=== PATIENT | female | born 1990 | race Caucasian/White ===

== ENCOUNTER 2017-05-30 10:49 | Inpatient (IN) | payer OTHER ==
[~2017-05-30] VITALS: Ht 172.7 cm; Wt 109.1 kg
[2017-05-30] MEDS ORDERED: LACTATED RINGER'S 1,000 ML IV SCH (11:13)
[2017-05-30] MEDS ORDERED: LACTATED RINGER'S 1,000 ML IV PRN (11:15)
[2017-05-30] MEDS ORDERED: BUTORPHANOL 2 MG INJ IV PRN (11:30)
[2017-05-30] MEDS ORDERED: OXYTOCIN 30 UNITS/LR 500 ML IV PRN ×2 (11:30→12:30)
[2017-05-30] MEDS ORDERED: OXYTOCIN 30 UNITS/LR 500 ML IV SCH ×3 (11:30)
[2017-05-30] MEDS ORDERED: METHYLERGONOVINE 0.2 MG INJ IM PRN ×2 (11:30→12:30)
[2017-05-30] MEDS ORDERED: LIDOCAINE 1% (MPF) 30 ML INJ INJ PRN (11:30)
[2017-05-30] MEDS ORDERED: MISOPROSTOL 200 MCG TAB PR PRN ×2 (11:30→12:30)
[2017-05-30] MEDS ORDERED: CEFAZOLIN 2 GM/50 ML (PMX) 50 ML IV SCH (11:30)
[2017-05-30] MEDS ORDERED: CARBOPROST 250 MCG INJ IM PRN ×2 (11:30→12:30)
[2017-05-30] MEDS ORDERED: IBUPROFEN 600 MG TAB PO PRN (11:30)
[2017-05-30] MEDS ORDERED: MINERAL OIL LIGHT 10 ML VIAL ONE (11:49)
--- NOTE | 2017-05-30 11:50 | HP ---
Date/Time of Note Date/Time of Note DATE: 05/30/17 TIME: 11:46 OB - History Hx of Present Free Text/Dictation 26 y old G5, P2, one comes in active labor. 8 cms dilated. Chief Complaint: contractions Estimated Due Date: Jun 08, 2017 : 5 Para: 2 Care: Good Care Ultrasounds: Normal mid trimester US Obstetrical Complications: None Medical Complications: None Past Family/Social History * Past Medical, Surgical, Family and Obstetric Histories reviewed from chart. Rubella: immune RPR/VDRL: Negative GBS Status: Negative HBsAG: Negative NEHA CANDELARIO MD May 30, 2017 11:50
[2017-05-30 11:55] LABS: BASOPHILS % 0.2 % (0.0-2.0); EOSINOPHILS # 0.1 10^3/ul (0.0-0.5); EOSINOPHILS % 0.8 % (0.0-7.0); HEMATOCRIT 36.2 % (37.0-47.0); HEMOGLOBIN 11.7 g/dl (12.0-16.0); LYMPHOCYTES % 12.8 % (15.0-51.0); MEAN CORPUSCULAR HEMOGLOBIN 30.2 pg (29.0-33.0); MEAN CORPUSCULAR HGB CONC 32.3 g/dl (32.0-37.0); MEAN CORPUSCULAR VOLUME 93.5 fl (82.0-101.0); MEAN PLATELET VOLUME 12.7 fl (7.4-10.4); MONOCYTE # 1.4 10^3/ul (0.3-0.9); MONOCYTES % 8.9 % (0.0-11.0); NEUTROPHIL # 11.8 10^3/ul (1.6-7.5); NEUTROPHILS % 76.8 % (39.0-77.0); PLATELET COUNT 295 10^3/UL (140-415); RED BLOOD COUNT 3.87 10^6/ul (4.20-5.40); RED CELL DISTRIBUTION WIDTH 14.5 % (11.5-14.5); WHITE BLOOD COUNT 15.3 10^3/ul (4.8-10.8)
[2017-05-30] MEDS ORDERED: FENTAnyl 2MCG/ML-ROPIV 0.2% 100 ML ONE (11:55)
[2017-05-30 12:12] LABS: INR 1.01; PROTIME 13.3 Sec (12.2-14.2)
[2017-05-30 12:13] LABS: PARTIAL THROMBOPLASTIN TIME 26.4 Sec (25.0-35.0)
--- NOTE | 2017-05-30 12:28 | LDN ---
Date/Time of Note Date/Time of Note DATE: 05/30/17 TIME: 12:27 Delivery Summary Normal vaginal delivery,baby girl Weeks of Gestation 38 weeks Placenta Delivered: Spontaneously Meconium: none Episiotomy: No Anesthesia type: Epidural Estimated blood loss: 300 Sponge & Needle done & correct: Yes All needle counts correct: Yes Any foreign bodies felt in the: No Problems: NEHA CANDELARIO MD May 30, 2017 12:28
[2017-05-30] MEDS ORDERED: KETOROLAC 30 MG INJ IV PRN (12:30)
[2017-05-30] MEDS ORDERED: ACETAMINOPHEN 325 MG TAB PO PRN ×2 (12:30)
[2017-05-30] MEDS ORDERED: ONDANSETRON 4 MG TAB PO PRN (12:30)
[2017-05-30] MEDS ORDERED: DIPHENHYDRAMINE 50 MG INJ IV PRN (12:30)
[2017-05-30] MEDS ORDERED: FENTAnyl 2MCG/ML-ROPIV 0.2% 100 ML BAG EPI SCH (12:30)
[2017-05-30] MEDS ORDERED: NALOXONE (0.4 MG/ML) INJ IV PRN (12:30)
[2017-05-30] MEDS ORDERED: DIBUCAINE 1% 30 GM OINT PR PRN (12:30)
[2017-05-30] MEDS ORDERED: DIPHENHYDRAMINE 25 MG CAP PO PRN (12:30)
[2017-05-30] MEDS ORDERED: NA PHOSPHATE/BIPHOS 133 ML ENEMA PR PRN (12:30)
[2017-05-30] MEDS ORDERED: ZOLPIDEM 5 MG TAB PO PRN (12:30)
[2017-05-30] MEDS ORDERED: HYDROmorphONE 1 MG/ML SYG IV PRN ×2 (12:30)
[2017-05-30] MEDS ORDERED: BENZOCAINE 20% 56 ML SPRAY TOP PRN (12:30)
[2017-05-30] MEDS ORDERED: ONDANSETRON 4 MG INJ IV PRN ×2 (12:30)
[2017-05-30] MEDS ORDERED: WITCH HAZEL/GLYCERIN PAD PR PRN (12:30)
[2017-05-30] MEDS ORDERED: HYDROCODONE/APAP (5/325) TAB PO PRN (12:30)
[2017-05-30 12:36] LABS: ADD UMIC NO; UR ASCORBIC ACID 20 mg/dL (NEGATIVE); UR BILIRUBIN (Dip) NEGATIVE (NEGATIVE); UR BLOOD (Dip) NEGATIVE (NEGATIVE); UR CLARITY CLEAR (CLEAR); UR COLOR YELLOW (YELLOW); UR GLUCOSE (Dip) NEGATIVE (NEGATIVE); UR KETONES (Dip) TRACE mg/dL (NEGATIVE); UR LEUKOCYTE ESTERASE (Dip) NEGATIVE Leu/ul (NEGATIVE); UR NITRITE (Dip) NEGATIVE (NEGATIVE); UR SPECIFIC GRAVITY (Dip) 1.015 (1.003-1.030); UR TOTAL PROTEIN (Dip) NEGATIVE (NEGATIVE); UR UROBILINOGEN (Dip) NEGATIVE (NEGATIVE)
[2017-05-30 12:48] LABS: ALBUMIN 3.7 g/dl (3.3-4.9); ALBUMIN/GLOBULIN RATIO 0.97; BILIRUBIN,INDIRECT 0.3 mg/dl (0-1.1); BILIRUBIN,TOTAL 0.3 mg/dl (0.2-1.3); CALCIUM 9.3 mg/dl (8.4-10.2); CREATININE 0.58 mg/dl (0.44-1.00); POTASSIUM 4.2 mmol/L (3.5-5.1); TOTAL PROTEIN 7.5 g/dl (6.1-8.1); URIC ACID 4.3 mg/dl (3.1-7.9)
[2017-05-30 12:50] LABS: BARBITURATES Negative (NEGATIVE); BENZODIAZEPINES Negative (NEGATIVE); CANNABINOIDS Negative (NEGATIVE); COCAINE Negative (NEGATIVE); OPIATES Negative (NEGATIVE)
[2017-05-30] MEDS: OXYTOCIN 30 UNITS/LR 500 ML IV SCH ×2 (13:24→16:59)
[2017-05-30 13:37] VITALS: BP 170/90; PULSE 94; RESP 22
[2017-05-30 13:39] VITALS: Ht 172.7 cm; Wt 109.1 kg
[2017-05-30] MEDS ORDERED: PREN-17 PO (13:41)
[2017-05-30 14:15] VITALS: BP 140/62; PULSE 79; RESP 18
[2017-05-30 14:30] VITALS: BP 138/64; PULSE 74; RESP 20
[2017-05-30 16:10] VITALS: BP 136/76; PULSE 67; RESP 18
[2017-05-30] MEDS: IBUPROFEN 800 MG TAB PO SCH (17:46)
[2017-05-30] MEDS ORDERED: INFLUENZA VIRUS VACCINE 0.5 ML SYG IM* ONE (18:00)
[2017-05-30 20:00] VITALS: BP 128/62; PULSE 81; RESP 18
[2017-05-30] MEDS: MAGNESIUM HYDROXIDE 30ML CUP PO SCH (21:28)
--- NOTE | 2017-05-30 22:20 | PREOPHP ---
DATE OF ADMISSION: 05/30/2017 She is to be operated tomorrow, May 31, 2017. This patient delivered today a baby girl, vaginal after section, has requested sterilization and signed the appropriate consents. HISTORY OF PRESENT ILLNESS: This is a 26-year-old female, 5, para 3, with a history of previous section, who gave through a normal vaginal delivery a baby girl who weighed 9 pounds today. She has requested sterilization. The alternatives, benefits, risks and possible complications, including 1 percent failure risk of the procedure, were discussed with the patient in detail in the office. She signed the appropriate surgical informed consents. All her questions were answered. PAST MEDICAL HISTORY: Entirely negative. ALLERGIES: SHE HAS NO ALLERGIES. MEDICATIONS: Takes only vitamins on a regular basis. REVIEW OF SYSTEMS: A 12-point review of systems is noncontributory. FAMILY HISTORY: Noncontributory. PHYSICAL EXAMINATION: GENERAL APPEARANCE: Well developed and nourished, in no distress. Alert and oriented x3. VITAL SIGNS: Showed temperature to be 98, blood pressure is 120/60, respirations 16 per minute, pulse is 72 per minute and regular. HEENT: Within normal limits. Pupils are PERRLA. NECK: Supple. Thyroid is nonpalpable. There is no lymphadenopathy. LUNGS: Clear to percussion and auscultation. HEART: Rate and rhythm is regular. No murmur. ABDOMEN: Soft. The uterus is firm at the level of the umbilicus. PELVIC EXAM: Right after delivery, so intact perineum. The cervix is normal. There are no tears. Uterus firm and of the size up to the umbilicus. There are no adnexal masses present. EXTREMITIES: Examination of lower extremities within normal limits. NEUROLOGIC EXAMINATION: Is also normal. IMPRESSION AND PLAN: Multiparity. The patient desires sterilization . It is to be done through a mini- laparotomy under general anesthesia tomorrow, 05/31/2017. Dictated By: Carlos Bradley MD /[email or web address] /Document#: [id number]
[2017-05-31] VITALS (20 sets, daily range): BP systolic 103–146; BP diastolic 43–88; PULSE 66–94; RESP 15–24
[2017-05-31] MEDS: IBUPROFEN 800 MG TAB PO SCH ×3 (05:44→12:00)
[2017-05-31] MEDS: MAGNESIUM HYDROXIDE 30ML CUP PO SCH ×2 (09:00→20:38)
[2017-05-31 09:46] LABS: BASOPHIL # 0.1 10^3/ul (0.0-0.1); BASOPHILS % 0.3 % (0.0-2.0); EOSINOPHILS # 0.2 10^3/ul (0.0-0.5); HEMATOCRIT 36.4 % (37.0-47.0); HEMOGLOBIN 11.8 g/dl (12.0-16.0); LYMPHOCYTES # 2.1 10^3/ul (0.8-2.9); MEAN CORPUSCULAR HEMOGLOBIN 30.5 pg (29.0-33.0); MEAN CORPUSCULAR HGB CONC 32.4 g/dl (32.0-37.0); MEAN CORPUSCULAR VOLUME 94.1 fl (82.0-101.0); MEAN PLATELET VOLUME 12.8 fl (7.4-10.4); MONOCYTE # 1.1 10^3/ul (0.3-0.9); MONOCYTES % 7.7 % (0.0-11.0); NEUTROPHIL # 11.2 10^3/ul (1.6-7.5); NEUTROPHILS % 76.6 % (39.0-77.0); PLATELET COUNT 312 10^3/UL (140-415); RED BLOOD COUNT 3.87 10^6/ul (4.20-5.40); RED CELL DISTRIBUTION WIDTH 14.6 % (11.5-14.5); WHITE BLOOD COUNT 14.7 10^3/ul (4.8-10.8)
[2017-05-31] MEDS ORDERED: LIDOCAINE 2%/EPI 30 ML INJ ONE (11:48)
[2017-05-31] MEDS ORDERED: FENTAnyl 50 MCG/ML VIAL ONE (11:48)
[2017-05-31] MEDS ORDERED: MIDAZOLAM 1 MG/ML 2 ML INJ ONE ×3 (11:50→13:31)
[2017-05-31] MEDS ORDERED: CEFAZOLIN 1 GM INJ ONE (11:51)
[2017-05-31] MEDS ORDERED: ONDANSETRON 4 MG INJ IV PRN ×2 (12:00→14:30)
[2017-05-31] MEDS ORDERED: HYDROmorphONE (0.2 MG/ML) 10ML SYG IV PRN ×3 (12:00)
[2017-05-31] MEDS ORDERED: MEPERIDINE 25 MG INJ IV PRN (12:00)
[2017-05-31] MEDS ORDERED: FENTAnyl 50 MCG/ML VIAL IV PRN ×2 (12:00)
[2017-05-31] MEDS ORDERED: BUPIVACAINE 0.5%/EPI (SDV) 30 ML INJ INJ ONE (13:00)
--- NOTE | 2017-05-31 14:16 | SIPON ---
Date/Time of Note Date/Time of Note DATE: 05/31/17 TIME: 14:14 Operative Report Preoperative Diagnosis Multiparity. Postoperative Diagnosis Same. Operation/Procedure Performed Bilateral tubal ligation under spinal anesthesia. Surgeon Dr.Carlos Isabelle Bradley assistant guest services manager None Anesthesia: spinal Estimated blood loss: minimal Transfusion Required none Specimen Portions of fallopian tubes. Grafts/Implants none Complications none NEHA BRADLEY MD May 31, 2017 14:16
[2017-05-31] MEDS ORDERED: IBUPROFEN 600 MG TAB PO PRN (14:30)
[2017-05-31] MEDS ORDERED: OXYCODONE/ACETAMINOPHEN (5/325) TAB PO PRN ×2 (14:30)
[2017-05-31] MEDS ORDERED: morphine 2 MG INJ IV PRN (14:30)
[2017-05-31] MEDS ORDERED: ACETAMINOPHEN 325 MG TAB PO PRN (14:30)
[2017-05-31] MEDS: LACTATED RINGER'S 1,000 ML IV SCH (17:01)
--- NOTE | 2017-05-31 18:22 | OPR ---
DATE OF OPERATION: 05/31/2017 ANESTHESIOLOGIST: Andrea Sultana MD PREOPERATIVE DIAGNOSIS: Multiparity. The patient desires sterilization . POSTOPERATIVE DIAGNOSIS: Multiparity. The patient desires sterilization . OPERATION PERFORMED: Bilateral tubal ligation under spinal anesthesia by Dr. Sultana. ESTIMATED BLOOD LOSS: Bleeding was minimal. COMPLICATIONS: None. SPECIMENS: Portions of bilateral fallopian tubes were sent to pathology. OPERATIVE PROCEDURE: With the patient under spinal anesthesia laying on the table in dorsal recumbent position, she had a Pittman catheter draining the bladder. The abdomen was prepped with ChloraPrep and after three minutes was draped in the usual sterile fashion for this procedure. Small incision was done in the umbilicus and deepened through layers of abdominal wall with ease and no complications. The left tube was identified first, picked up with a Roberto clamp and followed to the fimbriated end. Then, the loop of tube that was being held was tied at its base twice with 0-plain gut. This portion of the tube was cut away and sent to pathology. The stump was cauterized with the Bovie. Good hemostasis was seen. The same was done on the contralateral side. The abdomen was closed in layers starting with the peritoneum with a purse string of 2-0 chromic gut. Fascia was closed with continuous running stitch of 0-Vicryl. Finally, the edges of the skin were brought together with 4-0 Monocryl. A sterile Band-Aid was applied and patient was taken to recovery room with vital signs stable. Needle, sponge, and instrument count at the end of the procedure was correct twice. Dictated By: Carlos Bradley MD /[email or web address] /Document#: [id number]
[2017-05-31] MEDS: HYDROCODONE/APAP (5/325) TAB PO PRN (23:11)
[2017-06-01] MEDS: LACTATED RINGER'S 1,000 ML IV SCH (00:17)
[2017-06-01 04:25] VITALS: BP 120/52; PULSE 64; RESP 18
[2017-06-01] MEDS: HYDROCODONE/APAP (5/325) TAB PO PRN ×2 (04:32→08:18)
[2017-06-01 08:00] VITALS: BP 135/70; PULSE 79; RESP 18
[2017-06-01] MEDS: MAGNESIUM HYDROXIDE 30ML CUP PO SCH (08:19)
[2017-06-01] MEDS ORDERED: MEASLES,MUMPS,RUBELLA VACCINE INJ SC* ONE (09:00)
[2017-06-01] MEDS ORDERED: DIPHTH/TET/ACEL PERTUSS (ADULT) 0.5 ML VIAL IM* ONE (09:00)
--- NOTE | 2017-06-01 10:39 | PD.PPDC ---
CANDY PULLER Discharge Instruction Condition Patient Condition: Good Diet Diet: Resume Regular Diet Activity/Restrictions Activity: Normal Activity May Shower Restrictions: No Sexual Activity Nothing in the Vagina No [place] No Tampons, douche Wound/Drain Care Instructions Wound/Drain Care Instructions: Wash with soap and water Keep clean and dry Follow-up Follow-up with Physician: 2, Week/Weeks Return to clinic for [facility] ASSISTANT Instructions: Fever greater than 101 Chills Worsening abdominal pain Excessive Vaginal Bleeding OB Instructions: Breast Tenderness Depression Surgical Instructions: Incisional Drainage Incisional Redness KELI PENA MD Jun 01, 2017 10:39
[2017-06-01] MEDS ORDERED: OXYC-438 PO (10:40)
[2017-06-01] MEDS ORDERED: IBUP-1542 PO (10:40)
--- NOTE | 2017-06-01 10:43 | DS ---
Date/Time of Note Date/Time of Note DATE: 06/01/17 TIME: 10:41 Obstetrical Discharge Record Final Diagnosis Final Diagnosis: Term delivered Vaginal Delivery Obstetrical Delivery: Spontaneous, Bilateral Tubal Ligation, Successful Complications Augmentation: No Induction: No Condition on Discharge Physical Assessment Last Vitals: T-98 BP 138/70 Voiding: Yes Bowel Movement: Yes Breast: Filling Fundus: Firm Abdomen and Incision: Umbilical incision is clean, dry and intact. Calf Tenderness: No Patient Condition: Good KELI PENA MD Jun 01, 2017 10:43
--- NOTE | 2017-06-03 14:42 | CONS ---
Date/Time of Note Date/Time of Note DATE: 06/03/17 TIME: 14:41 Consultation Date/Type/Reason Admit Date/Time May 30, 2017 at 11:15 Initial Consult Date 05/31/17 Type of Consultation: Anesthesiology Reason for Consultation follow up 24 HR Interval Summary Free Text/Dictation Pt seen and examined at bedside on 05/31/17 is POD#1 s/p c/s after labor epidural. Pt received Duramorph in her epidural for post op pain relief and pain is currently controlled adequately. No N/V/D/SALAZAR/Numbness in extremities. Will follow. Constitutional: improved, no complaints Exam/Review of Systems Vital Signs Vitals Vital Signs Date Time Temp Pulse Resp B/P Pulse Ox O2 Delivery O2 Flow Rate FiO2 06/01/17 08:00 98.0 79 18 135/70 Room Air 05/31/17 15:23 96 Results Result Diagram: 05/31/17 0850 05/30/17 1120 Results 24 hrs Laboratory Tests Test 06/02/17 15:10 Lab Scanned Report REFERENCE LAB JULIANN STAHL Jun 03, 2017 14:42
== END 2017-06-01 12:18 | disposition home or self-care (01) | DRG 767 ==
LOC: OBT 10:49 → L-D 10:49 → OBT 11:24 → PP1 14:27
PROVIDERS: ADMIT Specialist; ATTEND Specialist
PROC: 10E0XZZ Delivery of Products of Conception, External Approach (ICD-10-PCS; principal; 2017-05-30)
PROC: 0UB70ZZ Excision of Bilateral Fallopian Tubes, Open Approach (ICD-10-PCS; 2017-05-31)
PROC: 3E0234Z Introduction of Serum, Toxoid and Vaccine into Muscle, Percutaneous Approach (ICD-10-PCS; 2017-06-01)
DX: O34.211 Maternal care for low transverse scar from previous cesarean delivery (principal); E66.01 Morbid (severe) obesity due to excess calories; O99.214 Obesity complicating childbirth; Z68.36 Body mass index [BMI] 36.0-36.9, adult; Z30.2 Encounter for sterilization; Z23 Encounter for immunization; Z37.0 Single live birth; Z3A.39 39 weeks gestation of pregnancy
CPT/HCPCS: 62319; 80053; 80307; 81003; 84560; 85025; 85610; 85730; 86592; 86850; 86900; 86901; 86920; 87086; 87340; 88302; 90686; 90715; G0463; J0690; J2250; J2405; J2590; J3010; J7120